=== PATIENT | male | born 1955 | race Caucasian/White ===

== ENCOUNTER 2023-10-07 05:56 | Emergency (ER) | payer MEDICARE, OTHER ==
[~2023-10-07] VITALS: Ht 177.8 cm; Wt 106.8 kg
[~2023-10-07 05:56] MED LIST: ALEVE; LEVAQUIN 750MG750 M1 PO; NO HOME MEDICATIONS
[2023-10-07 06:00] VITALS: TEMP 98
[2023-10-07] MEDS ORDERED: Morphine 4 MG/ML VIAL IV ONE ×2 (06:15→08:45)
[2023-10-07 06:31] LABS: BASO # 0.1 K/mm3 (0.0-0.2); BASO % 0.5 % (0.0-2.0); EOS # 0.2 K/mm3 (0.0-0.7); EOS % 1.6 % (0.0-4.0); GRAN # 9.6 K/mm3 (1.4-6.5); GRAN % 75.5 % (42.2-75.2); HEMATOCRIT 47.8 % (42.0-52.0); HEMOGLOBIN 15.7 g/dl (13.5-18.0); LYMPH # 1.4 K/mm3 (1.2-3.4); LYMPH % 11.1 % (20.0-51.0); MEAN CELL VOLUME 92 fl (80.0-100.0); MEAN CORPUSCULAR HEMOGLOBIN 30 pg (27-31); MEAN CORPUSCULAR HGB CONC 33 g/dl (33.0-37.0); MEAN PLATELET VOLUME 9.3 fl (7.4-10.4); MONO # 1.4 K/mm3 (0.1-0.6); MONO % 10.8 % (1.7-9.3); PLATELET COUNT 285 K/mm3 (130-400); RED BLOOD COUNT 5.21 M/mm3 (4.20-5.60); REDCELL DISTRIBUTION WIDTH-CV 13.9 % (11.5-14.5)
[2023-10-07 06:58] LABS: ALANINE AMINOTRANSFERASE 54 U/L (0-55); ALBUMIN 3.8 g/dL (3.4-4.8); ALKALINE PHOSPHATASE 73 U/L (40-150); ANION GAP 13 mmol/L (7-16); AST,SGOT 52 U/L (5-34); BILIRUBIN,TOTAL 0.7 mg/dL (0.2-1.2); BLOOD UREA NITROGEN 9 mg/dL (8-26); CALCIUM 9.7 mg/dL (8.4-10.2); CHLORIDE 103 mEq/L (98-107); CREATININE, serum 0.82 mg/dL (0.72-1.25); GLUCOSE 143 mg/dL (70-99); POTASSIUM 4.2 mEq/L (3.5-4.5); SODIUM 137 mEq/L (136-145); TOTAL PROTEIN 7.7 g/dl (6.2-8.1)
[2023-10-07 07:00] LABS: TROPONIN-I < 0.010 ng/mL (0.00-0.033)
[2023-10-07] MEDS ORDERED: Iohexol 300 - 100 ML VIAL IV ONE (07:36)
[2023-10-07] MEDS ORDERED: NS 100 ML IV SCH (07:37)
[2023-10-07 09:29] VITALS: BP 129/79; PULSE 78
== END 2023-10-07 13:15 | disposition short-term general hospital (02) ==
LOC: COL.ER 05:56
PROVIDERS: Emergency Medicine
DX: S22.079A Unspecified fracture of T9-T10 vertebra, initial encounter for closed fracture (principal); R10.13 Epigastric pain; R10.12 Left upper quadrant pain; E11.9 Type 2 diabetes mellitus without complications; D72.829 Elevated white blood cell count, unspecified; Z79.01 Long term (current) use of anticoagulants; W18.30XA Fall on same level, unspecified, initial encounter
CPT/HCPCS: J2270; Q9967